=== PATIENT | female | born 1940 | race Caucasian/White ===

== ENCOUNTER → 2020-09-21 | Outpatient (CLI) | payer MEDICARE, OTHER ==
[~2020-09-21] VITALS: Ht 154.9 cm; Wt 73.6 kg
[~2020-09-21] MED LIST: ACIPHEX20 MG PO; ADVIL 200MG TA200 MG PO; ATARAX 10MG/52 MG/ML PO; ATROVENT NASAL15 ML NS; CALCIUM 600 +1 EAC7 PO; DAILY VITE1 TA1 PO; DIGEST ADV INT1 EACH PO; EVISTA 60MG60 MG/TAB PO; FISH OIL1 IU PO; FLONASE SENSIM5.9 ML NS; FLOVENT DI50 MCG/Act IH; HYOSCYAMINE0.125 M7 PO; INDERAL 10MG10 MG PO; LASIX20 M1 PO; MASON NATURAL500 MG PO; NORTRIPTYLINE H10 M2 PO; PEPCID AC10 M2 PO; POTASSIUM CH2 MEQ/ML PO; PROBIOTIC1 EAC1 PO; SINGULAIR PO; SPIRIVA RESPIMAT4 GM IH; TYLENOL EXTRA500 M2 PO; VITAMIN D31250 MC1 PO; ZYRTEC ALLERGY10 MG PO; ZYRTEC-D TABLE1 EACH PO; [UNRECOGNIZED DRUG - CODE] PO
[2020-09-21 14:34] VITALS: BP 142/71
[2020-09-21 16:50] VITALS: BP 140/66
== END ==
LOC: AMSURD 13:35
DX: E61.1 Iron deficiency (principal)
CPT/HCPCS: J1756; J7050